=== PATIENT | male | born 2000 | race Caucasian/White ===

== ENCOUNTER 2019-07-07 03:36 | Emergency (ER) | payer BC ==
[~2019-07-07] VITALS: Ht 175.3 cm; Wt 73.8 kg
[~2019-07-07 03:36] MED LIST: BACL10TA PO; IBUP-1542 PO; IBUP-1561 PO
[2019-07-07 03:50] VITALS: BP 121/74; PULSE 66; RESP 18; Ht 175.3 cm; Wt 73.8 kg
== END 2019-07-07 04:50 | disposition home or self-care (01) ==
LOC: FTE 03:36
DX: M62.838 Other muscle spasm (principal)
CPT/HCPCS: 93005; Z7502